=== PATIENT | male | born 1990 | race Caucasian/White ===

== ENCOUNTER 2018-09-15 11:06 | Emergency (ER) | payer MEDICAID, SELFPAY ==
[2018-09-15 11:10] VITALS: BP 159/93; PULSE 91; RESP 14; TEMP 36.6; O2SAT 100; BMI 25.0
--- NOTE | 2018-09-15 11:23 | RAD_ITS ---
STUDY: X-RAY - LEFT KNEE REASON FOR EXAM: Male, 28 years old. Pain. Evaluate for foreign body. TECHNIQUE: 2 view(s) of the knee. COMPARISON: None. FINDINGS: There is no evidence of fracture or dislocation. There are no significant degenerative changes. There are no radiodense foreign bodies. RAD/Knee 1 or 2 Views IMPRESSION: No fracture or dislocation. No radiodense foreign body. Electronically Signed: Juwan Sanchez, at 12:06 EST Tel , Service support ,
--- NOTE | 2018-09-15 12:14 | ED.VISSUMM ---
- ER Visit Summary Date of Service: 09/15/18 Chief Complaint: [Redness and swelling to left knee with concern for foreign body] History of Present Illness: The patient is a 28 M [presents to the emergency department complaint of redness and swelling to his left knee that started yesterday. Patient states that he felt like he had a metallic foreign body in the left knee possibly related to work because something Catching on his jeans. Patient noticed a papule and so he squeezed it and states that he had small amount of stainless steel particulate debris that came out of the pustule. Patient is concerned that there may be more metallic foreign body in the skin. Patient denies any fevers at home. He does complain of some discomfort with walking.] Physical Examination: [HEENT-PERRLA, EOMI. Cranial nerves II through XII grossly intact. TMs clear. Mucous membranes moist. No adenopathy. Cardiovascular-regular rate and rhythm without murmur or ectopy Lungs-clear to auscultation, chest wall stable without crepitus or subcu emphysema Abdomen-normoactive bowel sounds, soft, nontender, no rebound or rigidity, no peritoneal signs. Extremities-intact ?4, normal range of motion, normal pulses. Left knee-patient has 3 small papules/pustules to the anterior aspect of the left knee. Patient had squeezed and now there is excoriation of the central papule. There is surrounding faint erythema measuring approximately 10 x 8 cm about the medial and anterior aspect of the knee. Patient has normal range of motion flexion extension that is painless. He is neurovascular intact distally. There is no lymphangitic streaking. Patient also has multiple other pustules on to both thighs. Test Results: [X-ray of the left knee obtained showed no foreign bodies] Emergency Department Course and Treatment: [Patient was started on Keflex and Bactrim] Treatment Plan: [Area of erythema outlined in marker and patient will be treated with Bactrim and Keflex. Patient will be given primary care physician for follow-up. I suspect patient has a cellulitis related to his pustules and folliculitis.] Disposition: [Discharged home in stable condition] Impression: [Cellulitis Folliculitis] This note was generated with [employer] dictation software. It may contain incorrect words, spelling, and punctuation that were not noted in review of the chart prior to signing ED Disposition - Plan for ED Patient: Chief Complaint: Lower Extremity Injury Referrals: Care Physician,No Primary [Primary Care Provider] -
--- NOTE | 2018-09-15 12:17 | ED.DEP ---
ED Disposition - Plan for ED Patient: Chief Complaint: Lower Extremity Injury Instructions: ED Infec Skin Cellulitis, ED Folliculitis Prescriptions: Cephalexin [Keflex] 500 mg PO Q6 #40 cap Naproxen [Naprosyn] 500 mg PO BID PRN #20 tab Smz/Tmp Ds [Bactrim Ds] 1 tab PO BID #20 tab Referrals: Care Physician,No Primary [Primary Care Provider] - Osvaldo Edwards MD [STAFF PHYSICIAN] - 3-5 Days
[2018-09-15] MEDS: Smz/Tmp Ds Tablet 1 TABLET PO (12:28)
[2018-09-15] MEDS: Cephalexin 250 MG Capsule 500 MG PO (12:28)
[2018-09-15 12:31] VITALS: RESP 18
--- OUTSIDE RECORDS SUMMARY | 2018-11-09 19:58 | XMS RPT_ITS ---
:1990 Author Organization [facility] Care Team Providers Name Role Phone Bronson Delarosa Attending Unavailable Primay Care Physicia, No Primary Care Unavailable PROBLEMS PROBLEMS No Problem Records FoundPROCEDURES PROCEDURES No Procedure Records FoundRESULTS RESULTS DISCHARGE INSTRUCTION Observed: 09/15/2018 Status: F Source: [place] 12:19 PM [facility] REPOSITORY [place] Medical Records Department [address] [place] [address] Discharge Instruction 09/15/18 1217 MR#: [id number] Acct: [id number] Name: MERCY JACOB Rep #: [id number] : 1990 28 From: Bronson Delarosa DO PCP: Care Physician, No Primary Status: REG ER ED Disposition - Plan for ED Patient: Chief Complaint: Lower Extremity Injury Instructions: ED Infec Skin Cellulitis, ED Folliculitis Prescriptions: Cephalexin [Keflex] 500 mg PO Q6 #40 cap Naproxen [Naprosyn] 500 mg PO BID PRN #20 tab Smz/Tmp Ds [Bactrim Ds] 1 tab PO BID #20 tab Referrals: Care Physician,No Primary [Primary Care Provider] - Osvaldo Edwards MD [STAFF PHYSICIAN] - 3-5 Days What to do if you have Problems For any increased pain, shortness of breath, bleeding, nausea or vomiting, chest pain, or any unexpected problems, contact your Primary Care Provider. Call [facility] ([phone]) or report to the closest Emergency Room. Call 911 if necessary. 09/15/18 1219 <Electronically signed by Bronson Delarosa DO> Date Bronson Delarosa DO Cosigner Signature (If Indicated): Date CC: No Primary Care Physician EMERGENCY DEPARTMENT Observed: 09/15/2018 Status: F Source: [place] SUMMARY 12:17 PM [facility] REPOSITORY [place] Medical Records Department [address] [place] [address] Emergency Department Summary 09/15/18 1214 MR#: [id number] Acct: [id number] Name: MERCY JACOB Rep #: [id number] : 1990 28 From: Bronson Delarosa DO PCP: Care Physician, No Primary Status: REG ER - ER Visit Summary Date of Service: 09/15/18 Chief Complaint: [Redness and swelling to left knee with concern for foreign body] History of Present Illness: The patient is a 28 M [presents to the emergency department complaint of redness and swelling to his left knee that started yesterday. Patient states that he felt like he had a metallic foreign body in the left knee possibly related to work because something Catching on his jeans. Patient noticed a papule and so he squeezed it and states that he had small amount of stainless steel particulate debris that came out of the pustule. Patient is concerned that there may be more metallic foreign body in the skin. Patient denies any fevers at home. He does complain of some discomfort with walking.] Physical Examination: [HEENT-PERRLA, EOMI. Cranial nerves II through XII grossly intact. TMs clear. Mucous membranes moist. No adenopathy. Cardiovascular-regular rate and rhythm without murmur or ectopy Lungs-clear to auscultation, chest wall stable without crepitus or subcu emphysema Abdomen-normoactive bowel sounds, soft, nontender, no rebound or rigidity, no peritoneal signs. Extremities-intact 4, normal range of motion, normal pulses. Left knee-patient has 3 small papules/pustules to the anterior aspect of the left knee. Patient had squeezed and now there is excoriation of the central papule. There is surrounding faint erythema measuring approximately 10 x 8 cm about the medial and anterior aspect of the knee. Patient has normal range of motion flexion extension that is painless. He is neurovascular intact distally. There is no lymphangitic streaking. Patient also has multiple other pustules on to both thighs. Test Results: [X-ray of the left knee obtained showed no foreign bodies] Emergency Department Course and Treatment: [Patient was started on Keflex and Bactrim] Treatment Plan: [Area of erythema outlined in marker and patient will be treated with Bactrim and Keflex. Patient will be given primary care physician for follow-up. I suspect patient has a cellulitis related to his pustules and folliculitis.] Disposition: [Discharged home in stable condition] Impression: [Cellulitis Folliculitis] This note was generated with [employer] dictation software. It may contain incorrect words, spelling, and punctuation that were not noted in review of the chart prior to signing ED Disposition - Plan for ED Patient: Chief Complaint: Lower Extremity Injury Referrals: Care Physician,No Primary [Primary Care Provider] - What to do if you have Problems For any increased pain, shortness of breath, bleeding, nausea or vomiting, chest pain, or any unexpected problems, contact your Primary Care Provider. Call [facility] ([phone]) or report to the closest Emergency Room. Call 911 if necessary. 09/15/18 1217 <Electronically signed by Bronson Delarosa DO> Date Bronson Delarosa DO Cosigner Signature (If Indicated): Date CC: No Primary Care Physician KNEE 1 OR 2 VIEWS Observed: 09/15/2018 Status: F Source: [place] 11:24 AM [facility] REPOSITORY [place] Imaging Services [address] [place] [address] Knee 1 or 2 Views MR#: [id number] Acct: [id number] Name: MERCY JACOB Rep #: [id number] : 1990 M 28 From: Juwan Sanchez MD PCP: NOT, DEFINED Status: PRE ER Study: Knee 1 or 2 Views Date of Exam: 09/15/18 Exam# [id number] Ordering Dr: Bronson Delarosa DO STUDY: X-RAY - LEFT KNEE REASON FOR EXAM: Male, 28 years old. Pain. Evaluate for foreign body. TECHNIQUE: 2 view(s) of the knee. COMPARISON: None. FINDINGS: There is no evidence of fracture or dislocation. There are no significant degenerative changes. There are no radiodense foreign bodies. RAD/Knee 1 or 2 Views IMPRESSION: No fracture or dislocation. No radiodense foreign body. Electronically Signed: Juwan Sanchez, at 12:06 EST Tel , Service support , CC: DEFINED NOT; Bronson Delarosa DO Animation Artist: Signed ALLERGIES ALLERGIES DATE TYPE / CODE NAME / CODE REACTION SEVERITY SOURCE 09/15/2018 Drug No Known Unknown [facility] Allergy/4160 Allergies/F00 [facility] [address](SNOMED [id number](RXNOR Repository CT) M) ENCOUNTERS ENCOUNTERS ADMIT/DISCHARGE ACCOUNT ADMITTING ENCOUNTER LOCATION SOURCE NUMBER CLASS 09/15/2018/ [id number] Emergency [facility] ing:ED Repository PAYERS PAYERS ENCOUNTER GUARANTOR PAYER SUBSCRIBER SOURCE 09/15/2018 [facility] Primary [facility] [id number] Insurance:MEDICAID DERRADOB: [place], [place] OTHERPolicy Number: [id number] [address]Dfo: (552) [id number] Repository [phone] () Date:[id number] [address], [place] [address]QR: 09/15/2018 Secondary NOT GIVENUNK [facility] Insurance:SELF PAY [facility]: Effective Repository Date:2018-09-15
== END 2018-09-15 12:34 | disposition home or self-care (01) ==
LOC: ED 12:09
PROVIDERS: Emergency Provider Emergency Medicine
DX: L03.116 Cellulitis of left lower limb (principal); L73.9 Follicular disorder, unspecified
CPT/HCPCS: 73560; 99283